=== PATIENT | female | born 1985 | race Caucasian/White ===

== ENCOUNTER 2022-04-23 10:45 | Emergency (ER) | payer MEDICAID ==
[~2022-04-23] VITALS: Ht 160 cm; Wt 61.3 kg
[2022-04-23] MEDS ORDERED: KETOROLAC TROMETHAMINE 30 MG/ML VIAL IM ONE (14:30)
[2022-04-23 14:46] VITALS: BP 116/71
== END 2022-04-23 14:55 | disposition home or self-care (01) ==
LOC: EMS 10:45
DX: S20.219A Contusion of unspecified front wall of thorax, initial encounter (principal); F32.A Depression, unspecified; E78.00 Pure hypercholesterolemia, unspecified; Z98.890 Other specified postprocedural states; F17.210 Nicotine dependence, cigarettes, uncomplicated; W22.8XXA Striking against or struck by other objects, initial encounter; Y93.89 Activity, other specified; Y92.89 Other specified places as the place of occurrence of the external cause; Y99.8 Other external cause status
CPT/HCPCS: 99283; 71111; 81025; 93005; 96372; J1885

== ENCOUNTER 2024-02-18 01:34 | Emergency (ER) | payer MEDICAID, OTHER ==
[~2024-02-18] VITALS: Ht 152.4 cm; Wt 58.2 kg
[2024-02-18 01:40] VITALS: TEMP 98.3
[2024-02-18] MEDS: LORazepam 2 MG/ML VIAL IM ONE (01:57)
[2024-02-18 02:11] LABS: BASOPHILS % (AUTO) 1.1 % (0.0-2.0); EOSINOPHILS % (AUTO) 5.4 % (1.0-6.0); HEMOGLOBIN 13.5 g/dL (12.0-16.0); LYMPHOCYTES # (AUTO) 2.3 K/uL (1.0-4.8); LYMPHOCYTES % (AUTO) 24.1 % (22.0-44.0); MEAN CORPUSCULAR HEMOGLOBIN 29.8 pg (26.0-34.0); MEAN CORPUSCULAR HGB CONC 33.7 G/dL (31.0-37.0); MEAN CORPUSCULAR VOLUME 89 fL (80-100); MONOCYTES # (AUTO) 0.7 K/uL (0.1-1.0); NEUTROPHILS % (AUTO) 62.4 % (40.0-70.0); PLATELET COUNT (AUTO) 327 K/uL (150-450); RED BLOOD CELL COUNT(AUTO) 4.51 MIL/uL (4.00-5.20); RED CELL DISTRIBUTION WIDTH 13.8 % (11.5-14.5); WHITE BLOOD COUNT (AUTO) 9.6 K/uL (4.5-11.0)
[2024-02-18 02:23] LABS: ANION GAP 6 mmol/L (8-16); CALCIUM, TOTAL 8.8 mg/dL (8.8-10.5); CARBON DIOXIDE 27 mmol/L (22-29); CHLORIDE 103 mmol/L (98-107); GLOMERULAR FILTR. RATE CALC > 60 mL/min (>60); GLUCOSE,RANDOM 104 mg/dL (70-110); SODIUM SERUM 136 mmol/L (136-145); UREA NITROGEN, BLOOD 16 mg/dL (7-18)
[2024-02-18] MEDS ORDERED: LORA-1000 PO (02:29)
[2024-02-18] MEDS ORDERED: IBUP-1554 PO (02:29)
[2024-02-18] MEDS: ALBUTEROL SULFATE HFA 90 MCG/PUFF 8 GM INHALER IH ONE (02:38)
[2024-02-18 02:41] VITALS: BP 126/66; PULSE 84; RESP 16
== END 2024-02-18 02:44 | disposition home or self-care (01) ==
LOC: EMS 01:34
DX: F41.9 Anxiety disorder, unspecified (principal); M62.838 Other muscle spasm; R20.0 Anesthesia of skin; F32.A Depression, unspecified; E78.00 Pure hypercholesterolemia, unspecified; F17.210 Nicotine dependence, cigarettes, uncomplicated; Z98.890 Other specified postprocedural states
CPT/HCPCS: 99283; 80048; 84703; 85025; 36415; 94640; 96372; J2060; J3535